=== PATIENT | male | born 1965 | race Caucasian/White ===

== ENCOUNTER 2022-08-19 00:30 | Emergency (ER) | payer BC, SELFPAY ==
[2022-08-19] VITALS (9 sets, daily range): BP systolic 137–182; BP diastolic 84–100; PULSE 51–73; RESP 16–18; TEMP 36.4–36.8; O2SAT 96–100; BMI 25.7
--- NOTE | 2022-08-19 00:34 | ECG_ITS ---
APPROVED REPORT Exam: Resting ECG HR:57 bpm ECG Measurements Heart Rate 57 AXES NC 157 P 67 QRSd 124 QRS -57 QT 425 T 65 QTc 418 Conclusion SINUS BRADYCARDIA LEFT AXIS DEVIATION [QRS AXIS < -30] MODERATE INTRAVENTRICULAR CONDUCTION DELAY [110+ ms QRS DURATION] ABNORMAL ECG UNCONFIRMED REPORT Electronically signed by : Haseeb Arnold MD 08/19/2022 07:43:57
--- NOTE | 2022-08-19 00:38 | XR_ITS ---
PROCEDURE INFORMATION: Exam: XR Chest Exam date and time: 08/19/2022 12:45 AM Age: 57 years old Clinical indication: Other: Dizziness; Patient HX: Denies chest pain/soa. Nonsmoker; Additional info: Dizzy TECHNIQUE: Imaging protocol: Radiologic exam of the chest. Views: 2 views. COMPARISON: No relevant prior studies available. FINDINGS: Lungs: Unremarkable. No consolidation. Pleural spaces: Unremarkable. No pleural effusion. No pneumothorax. Heart/Mediastinum: Unremarkable. No cardiomegaly. Bones/joints: Unremarkable. IMPRESSION: No acute findings.
--- NOTE | 2022-08-19 00:45 | HMH.EDDIZZ ---
Discharge Plan Disposition Patient Disposition: Home, Self-Care Prescriptions Prescriptions: New lisinopril 10 mg tablet 10 mg PO DAILY Qty: 14 0RF meclizine [Antivert] 25 mg tablet,chewable 25 mg PO BID PRN (Reason: dizziness) Qty: 7 0RF No Action rosuvastatin 20 mg tablet 20 mg PO ONCE pantoprazole 40 mg tablet,delayed release (DR/EC) 40 mg PO BID metoprolol succinate 25 mg tablet extended release 24 hr 25 mg PO ONCE isosorbide mononitrate 30 mg tablet extended release 24 hr 30 mg PO QAM gabapentin 100 mg capsule 200 mg PO ONCE diclofenac sodium 75 mg tablet,delayed release (DR/EC) 75 mg PO BID cyanocobalamin (vitamin B-12) [Vitamin B-12] 1,000 mcg tablet 1,000 mcg PO ONCE aspirin [Adult Low Dose Aspirin] 81 mg tablet,delayed release (DR/EC) 81 mg PO ONCE methylprednisolone 4 MG tablets,dose pack 4 mg PO DIRECTED 6 Days Qty: 21 0RF Referrals Follow up/Referrals: Provider,Referral, MD [Referring] - See instructions Clinical Impressions Clinical Impression: Hypertensive cardiovascular disease, Vertigo Instructions Patient Instructions: Vertigo Discharge ED Provider: Bandar (ED),Amanuel Camacho HPI General Chief Complaint: Dizziness Stated Complaint: Dizzy Time Seen by Provider: 08/19/22 00:45 Mode of Arrival: EMS Source of Information: Patient, EMS and Medical Record Limitations: No Limitations Description of Symptoms (Recalled from ER Triage Doc. by RN): PT advises he was at work tonight and around 10pm he started feeling lightheaded and dizzy. Advises he does not feel this way constantly but that the feeling will come and go. Denies any other symptoms at this time. History of Present Illness HPI Narrative: feeling of dizzyness at work with hx of htn but has stopped meds - no chest pain and no focal neuro sx -more with movement - no speech or visual sx complaint: lightheadedness Onset (ago): hour(s) Timing: gradual onset and waxing/waning History of similar episodes: Yes History of trauma: No Severity: moderate Associated symptoms: denies other symptoms Related Data Home Medications Medication Instructions Recorded Confirmed aspirin 81 mg tablet,delayed 81 mg PO ONCE 11/24/17 03/09/18 release (Adult Low Dose Aspirin) cyanocobalamin (vitamin B-12) 1,000 mcg PO ONCE 11/24/17 03/09/18 1,000 mcg tablet (Vitamin B-12) diclofenac sodium 75 mg 75 mg PO BID 11/24/17 03/09/18 tablet,delayed release gabapentin 100 mg capsule 200 mg PO ONCE 11/24/17 03/09/18 isosorbide mononitrate 30 mg 30 mg PO QAM 11/24/17 03/09/18 tablet,extended release 24 hr metoprolol succinate 25 mg 25 mg PO ONCE 11/24/17 03/09/18 tablet,extended release 24 hr pantoprazole 40 mg tablet,delayed 40 mg PO BID 11/24/17 03/09/18 release rosuvastatin 20 mg tablet 20 mg PO ONCE 11/24/17 03/09/18 Previous Rx's Medication Instructions Recorded methylprednisolone 4 mg tablets in 4 mg PO DIRECTED 6 days ##21 05/28/19 a dose pack lisinopril 10 mg tablet 10 mg PO DAILY #14 tabs 08/19/22 meclizine 25 mg chewable tablet 25 mg PO BID PRN dizziness #7 tabs 08/19/22 (Antivert) Allergies Allergy/AdvReac Type Severity Reaction Status Date / Time Penicillins Allergy Rash Verified 08/19/22 00:37 [facility] Disclaimer: The information contained in this section may have been updated after the patient was seen, as this information can be updated by other users. Social History Smoking Status: Never smoker alcohol intake: never current occupational status: other Travel in the last 8 weeks: None ROS Obtained: Yes All systems reviewed & no additional complaints except as documented Physical Exam General General appearance: alert Head Head exam: normocephalic Eye Eye exam: Present PERRL and EOMI; Absent nystagmus ENT ENT exam: Present mucous membranes moist Neck Neck exam: Present full ROM and trachea midline Respir
[2022-08-19 00:46] LABS: Basophils # 0.1 K/mm3 (0-0.2); Basophils % 1.2 % (0.1-2.0); Eosinophils # 0.2 K/mm3 (0.0-0.4); Eosinophils % 2.3 % (0.1-12.0); Hematocrit 46.4 % (42.0-52.0); Hemoglobin 15.9 g/dL (14.1-18.0); Lymphocytes # 1.9 K/mm3 (0.7-4.5); Lymphocytes % 24.8 % (10-50); Mean Corpuscular HGB Conc 34.2 g/dL (31.8-35.4); Mean Corpuscular Hemoglobin 30.9 pg (27.0-31.2); Mean Corpuscular Volume 90.4 fl (80-94); Mean Platelet Volume 7.6 fl (7.4-10.4); Monocytes # 0.3 K/mm3 (0.1-1.0); Monocytes % 4.5 % (1.7-9.3); Neutrophils % 67.1 % (37.0-80.0); Platelet Count 282 K/mm3 (142-424); Red Blood Count 5.13 M/mm3 (4.60-6.20); Red Cell Distribution Width 13.3 % (11.5-17.5); White Blood Count 7.5 K/mm3 (4.8-10.8)
--- NOTE | 2022-08-19 00:46 | PC.NURSE ---
Dr. Portillo at to speak with pt
[2022-08-19 00:47] LABS: Chloride 101 mmol/L (98-107); Potassium 3.6 mmoL/L (3.5-5.1); Sodium 138 mmol/L (136-145)
[2022-08-19 00:49] LABS: Alanine Aminotransferase 39 U/L (12-78); Aspartate Amino Transferase 35 U/L (17-59); Blood Urea Nitrogen 13 mg/dl (9-20); Creatinine Clearance Estimated 80 mL/min (50-200); Estimated Glomerular Filt Rate 78 ml/min (>60); GFR (African American) 94 ML/MIN (>60)
[2022-08-19 00:50] LABS: Albumin Level 4.7 g/dl (3.5-5.0); Albumin/Globulin Ratio 1.6 (1.1-1.8); Alkaline Phosphatase 89 U/L (38-126); Anion Gap 8.6 mEq/L (5-15); Bilirubin,Total 0.9 mg/dl (0.2-1.3); Carbon Dioxide 32 mmol/L (22.0-30.0); Globulin 2.9 g/dL (1.3-3.2); Glucose 120 mg/dl (74-100); Total Protein,Serum 7.6 g/dl (6.3-8.2)
[2022-08-19 01:16] LABS: Troponin I < 0.01 ng/ml (0.00-0.034)
--- NOTE | 2022-08-19 01:36 | PC.NURSE ---
Rounded on pt at this time. Updated on results. No other needs at this time
--- NOTE | 2022-08-19 02:06 | CT_ITS ---
PROCEDURE INFORMATION: Exam: CT Head Without Contrast Exam date and time: 08/19/2022 2:30 AM Age: 57 years old Clinical indication: Dizziness TECHNIQUE: Imaging protocol: Computed tomography of the head without contrast. Radiation optimization: All CT scans at this facility use at least one of these dose optimization techniques: automated exposure control; mA and/or kV adjustment per patient size (includes targeted exams where dose is matched to clinical indication); or iterative reconstruction. REPORTING DATA: Count of CT and Cardiac NM exams in prior 12 months: This patient has received 0 known CTs and 0 known cardiac nuclear medicine studies in the 12 months prior to the current study. COMPARISON: No relevant prior studies available. FINDINGS: Brain: No evidence of acute intracranial hemorrhage. The land-white matter differentiation is maintained. No significant mass effect or midline shift. Suspected borderline low-lying cerebellar tonsils reaching down to the level or just above the level of the foramen magnum. Cerebral ventricles: Mild prominence of the subarachnoid spaces could represent mild cerebral and cerebellar volume loss. No significant ventriculomegaly. Paranasal sinuses: Visualized sinuses are unremarkable. No fluid levels. Mastoid air cells: Visualized mastoid air cells are well aerated. Bones/joints: Unremarkable. No acute fracture. Soft tissues: Unremarkable. IMPRESSION: No acute intracranial hemorrhage or midline shift.
--- NOTE | 2022-08-19 02:32 | PC.NURSE ---
Pt returned from CT
--- NOTE | 2022-08-19 02:59 | PC.NURSE ---
Rounded on patient at this time. He advised that his dizziness was pretty much gone at this time and he was feeling better. Asked if he could have some crackers. Updated MD on pt's status and gave pt some crackers and peanut butter. No other needs at this time.
== END 2022-08-19 04:12 | disposition home or self-care (01) ==
PROVIDERS: Emergency Provider Emergency Medicine; PCP Family Medicine
DX: I16.0 Hypertensive urgency (principal); R42 Dizziness and giddiness; I10 Essential (primary) hypertension
CPT/HCPCS: 70450; 71046; 80053; 84484; 85025; 93005; 96360; 99285